=== PATIENT | male | born 1975 | race Caucasian/White ===

== ENCOUNTER 2018-04-16 20:27 | Emergency (ER) | payer OTHER ==
[2018-04-16 20:41] VITALS: BP 126/103
[2018-04-16] MEDS ORDERED: PENICILLIN VK 250MG PREPACK#6 BTL TAKEHOME ONE (20:56)
[2018-04-16] MEDS ORDERED: OXYCODONE/APAP 5/325MG PREPACK#4 BTL TAKEHOME ONE (20:56)
[2018-04-16] MEDS ORDERED: ONDANSETRON 4MG PREPACK#2 BTL TAKEHOME ONE (20:56)
--- NOTE | 2018-04-16 20:57 | EDPHY ---
H & P Time Seen by Provider: 04/16/18 20:53 HPI/ROS: CHIEF COMPLAINT: Toothache HISTORY OF PRESENT ILLNESS: The patient is a 40-year-old male who presents to the emergency department with right lower molar tooth pain. Patient's pain started this morning. Patient fractured his tooth over year ago. He has not had issues since breaking his tooth until today. Patient denies any fevers or chills. No facial swelling. No shortness of breath or difficulty swallowing. REVIEW OF SYSTEMS: Negative Past Medical/Surgical History: Noncontributory Smoking Status: Never smoked Physical Exam: Vitals noted General Appearance: Alert and no distress. Head/ent: Pupils equal. No facial swelling. No jaw tenderness. Patient has a noted fracture of his right lower last molar. There is no surrounding erythema or pus. Mild tenderness to palpation Respiratory: No respiratory distress. Cardiac: regular rate and rhythm. Extremities: Full range of motion, normal appearing. Skin: No rashes or lesions. Neuro: Alert. Normal mood and affect. Constitutional: Initial Vital Signs Temperature (C) 36.6 C 04/16/18 20:38 Heart Rate 92 04/16/18 20:38 Respiratory Rate 16 04/16/18 20:38 Blood Pressure 126/103 H 04/16/18 20:38 O2 Sat (%) 97 04/16/18 20:38 O2 Delivery Mode Room Air Allergies/Adverse Reactions: No Known Allergies Allergy (Unverified 01/16/13 21:31) Home Medications: Medication Instructions Recorded Ondansetron Odt [Zofran Odt 4 mg 4 mg PO Q4PRN PRN #5 tab 04/16/18 (*)] Penicillin V Potassium [Penicillin 500 mg PO TID 7 Days tablet 04/16/18 VK] Xanax 04/16/18 Zantac 04/16/18 oxyCODONE/APAP 5/325 [Percocet 1 - 2 tab PO Q4PRN PRN #11 tab 04/16/18 5/325 (*)] Medical Decision Making ED Course/Re-evaluation: In the emergency department I discussed possible etiologies with the patient. I answered all of his questions. Patient was given Percocet, Zofran and penicillin take-home pack. He was given 250 mg tablets of penicillin but instructed to take 2 tablets at a time for a 500 mg dose. Patient is aware he needs close follow-up with a dentist. He will call tomorrow. He was given warnings prior to leaving Differential Diagnosis: My differential includes but not limited to dental fracture, dental abscess, toothache Departure - Departure Disposition: Home, Routine, Self-Care Clinical Impression: Toothache Condition: Good Instructions: Toothache (ED) Additional Instructions: Take your entire course of antibiotics. You been given a prescription for penicillin. You also given take-home tablets to cover her dose tomorrow morning. Return with increasing pain, fever, swelling or any other concerns. Referrals: INDIRA COOK [Primary Care Provider] - As per Instructions [facility] [Outside] - As per Instructions [facility] [Outside] - As per Instructions
== END 2018-04-16 21:21 | disposition home or self-care (01) ==
LOC: CED 20:27
DX: K08.89 Other specified disorders of teeth and supporting structures (principal)
CPT/HCPCS: 99284-ER